=== PATIENT | male | born 1990 | race American Indian/Alaskan Native ===

== ENCOUNTER 2018-02-07 15:04 | Emergency (ER) | payer SELFPAY ==
[2018-02-07 15:57] VITALS: BP 127/84
--- NOTE | 2018-02-07 16:36 | XRay Report ---
FINAL REPORT EXAM: XR HAND BILAT 3+V HISTORY: HAND INJURIES TECHNIQUE: 3 views right hand PRIORS: None. FINDINGS: No fracture is identified. No dislocation seen. Joint spaces are within normal limits. No erosive bony change identified. Carpal bones maintain normal alignment. Distal radius and ulna are intact. No radiopaque foreign bodies seen. IMPRESSION: Negative hand series
[2018-02-07] MEDS ORDERED: KEFLEX PO ONE (17:03)
[2018-02-07] MEDS ORDERED: MOTRIN PO ONE (17:03)
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
== END 2018-02-07 18:03 | disposition home or self-care (01) ==
LOC: ED 15:04
DX: S60.512A Abrasion of left hand, initial encounter (principal); M79.642 Pain in left hand; M79.641 Pain in right hand; F17.200 Nicotine dependence, unspecified, uncomplicated; F12.10 Cannabis abuse, uncomplicated; Y04.0XXA Assault by unarmed brawl or fight, initial encounter; Y93.89 Activity, other specified; Y92.89 Other specified places as the place of occurrence of the external cause; Y99.8 Other external cause status
CPT/HCPCS: 99283